=== PATIENT | female | born 1995 | race Two or more races ===

== ENCOUNTER 2019-03-21 15:51 | Emergency (ER) | payer OTHER ==
[~2019-03-21] VITALS: Ht 157.5 cm; Wt 102.1 kg
== END 2019-03-21 21:44 | disposition home or self-care (01) ==
LOC: ER 15:51
DX: R11.11 Vomiting without nausea (principal); R10.84 Generalized abdominal pain; K29.60 Other gastritis without bleeding

== ENCOUNTER 2019-09-26 06:48 | Inpatient (IN) | payer OTHER ==
[~2019-09-26] VITALS: Ht 157.5 cm; Wt 99.3 kg
--- NOTE | 2019-09-26 07:24 | NUR ---
SE RFECIBE PTE. FEMENINA ALERTA CONCIENTE Y ORIENTADA EN COMPANIA DE MADRE, PTE. REFIERE DOLOR ABOMINAL Y VOMITOS DESDE CASSY EN LA MANANA. SE PASA A AREA DE OBSERVACION.
--- NOTE | 2019-09-26 07:52 | NUR ---
PTE EVALUADA POR EL DR STEVEN [place]. MS L RENO ORIENTA SOBRE EL MISMO, LO CUAL REFIERE ENTENDER Y REALIZA PRUEBAS DE LABORATORIO AMADOU ORDEN MEDICA Y SIGUIENDO MEDIDAS ASEPTICAS. MEDICAMENTOS ADMINISTRADOS POR MS AZUL. SONOGRAMA NOTIFICADO A PERSONAL DE TURNO.
--- NOTE | 2019-09-26 15:01 | NUR ---
PTE ALERTA Y ORIENTADA X 3 ESFERAS QUIEN SE RECIBE EN ERNST CON BARANDAS ELEVADAS,SIN FAMILIAR AL MOMENTO,AREA DE VENOPUNCION PATENTE Y SHARON DE EDEMA CON FLUIDOS DE MANTENIMIENTO,NO REFIERE DOLOR AL MOMENTO.PENDIENTE A EVALUACION DE DR FELICIA CARRERA.
[2019-10-03] MEDS ORDERED: AMOX1TAB5 PO (12:11)
[2019-10-03] MEDS ORDERED: ULTRACET PO (12:12)
[2019-10-03] MEDS ORDERED: PROTONIX40 MG PO (12:13)
== END 2019-10-03 14:42 | disposition home or self-care (01) | DRG 418 ==
LOC: ER 06:48 → MEDJ 17:55
PROVIDERS: Surgery; ADMIT Internal Medicine
PROC: BF37ZZZ Magnetic Resonance Imaging (MRI) of Pancreas (ICD-10-PCS; 2019-09-26)
PROC: BW40ZZZ Ultrasonography of Abdomen (ICD-10-PCS; 2019-09-26)
PROC: 0FJB8ZZ Inspection of Hepatobiliary Duct, Via Natural or Artificial Opening Endoscopic (ICD-10-PCS; 2019-09-30)
PROC: 0FT44ZZ Resection of Gallbladder, Percutaneous Endoscopic Approach (ICD-10-PCS; principal; 2019-10-01 09:00)
DX: K85.10 Biliary acute pancreatitis without necrosis or infection (principal); K80.00 Calculus of gallbladder with acute cholecystitis without obstruction; E86.0 Dehydration; E87.8 Other disorders of electrolyte and fluid balance, not elsewhere classified; E66.01 Morbid (severe) obesity due to excess calories

== ENCOUNTER 2020-01-24 10:43 | Emergency (ER) | payer OTHER ==
[~2020-01-24] VITALS: Ht 157.5 cm; Wt 102.1 kg
[~2020-01-24 10:43] MED LIST: AMOX1TAB5 PO; PROTONIX40 MG PO; ULTRACET PO
[2020-01-24] MEDS ORDERED: AMOX1TAB5 PO (11:04)
[2020-01-24] MEDS ORDERED: CORTISPORIN OIN15 GM TP (11:05)
[2020-01-24] MEDS ORDERED: MOTRIN IB200 MG PO (11:05)
== END 2020-01-24 12:45 | disposition home or self-care (01) ==
LOC: ER 10:43
DX: H66.92 Otitis media, unspecified, left ear (principal)

== ENCOUNTER 2021-05-02 17:41 | Emergency (ER) | payer OTHER ==
[~2021-05-02] VITALS: Ht 157.5 cm; Wt 92.5 kg
[~2021-05-02 17:41] MED LIST changes: +CORTISPORIN OIN15 GM TP; +MOTRIN IB200 MG PO
== END 2021-05-02 21:38 | disposition home or self-care (01) ==
LOC: ER 17:41
DX: N89.8 Other specified noninflammatory disorders of vagina (principal); J45.998 Other asthma

== ENCOUNTER 2021-09-09 11:38 | Emergency (ER) | payer OTHER ==
[~2021-09-09] VITALS: Ht 157.5 cm; Wt 89.8 kg
== END 2021-09-09 14:22 | disposition home or self-care (01) ==
LOC: ER 11:38
DX: K29.70 Gastritis, unspecified, without bleeding (principal); Z90.49 Acquired absence of other specified parts of digestive tract

== ENCOUNTER 2022-12-21 18:43 | Emergency (ER) | payer OTHER ==
[~2022-12-21] VITALS: Ht 172.7 cm; Wt 89.8 kg
[2022-12-21] MEDS ORDERED: DOLOGEN CAPLET1 EACH PO (21:52)
[2022-12-21] MEDS ORDERED: OSEL75CA PO (21:52)
[2022-12-21] MEDS ORDERED: TUSNEL LIQUID178 ML PO (21:52)
== END 2022-12-21 22:30 | disposition home or self-care (01) ==
LOC: ER 18:43
DX: J10.1 Influenza due to other identified influenza virus with other respiratory manifestations (principal); R53.81 Other malaise; Z20.822 Contact with and (suspected) exposure to COVID-19

== ENCOUNTER 2024-10-20 00:39 | Emergency (ER) | payer OTHER ==
[~2024-10-20] VITALS: Ht 157.5 cm; Wt 104.3 kg
[~2024-10-20 00:39] MED LIST changes: +DOLOGEN CAPLET1 EACH PO; +OSEL75CA PO; +TUSNEL LIQUID178 ML PO
[2024-10-20 00:56] VITALS: BP 108/62; O2SAT 98
[2024-10-20] MEDS ORDERED: LIDOCAINE HCL 1% 10ML VIAL ONE ×2 (01:53→03:06)
[2024-10-20] MEDS ORDERED: POVIDONE-IODINE 118 ML BOTT TOP ONE (01:54)
[2024-10-20] MEDS ORDERED: TETANUS & DIPHTHERIA TOX,ADULT 0.5 ML VIAL IM STA (02:10)
[2024-10-20] MEDS ORDERED: CEFTRIAXONE SODIUM 1,000 MG VIAL IM STA (03:03)
[2024-10-20] MEDS ORDERED: CEFTRIAXONE SODIUM 1,000 MG VIAL ONE (03:04)
[2024-10-20] MEDS ORDERED: DIPHTH,PERTUSS(ACELL),TET VAC 0.5 ML SYRINGE IM ONE (03:05)
[2024-10-20] MEDS ORDERED: CEPHALEXIN500 MG PO (03:17)
[2024-10-20] MEDS ORDERED: KETO10TA2 PO (03:17)
== END 2024-10-20 03:24 ==
LOC: ER 00:40
DX: S81.812A Laceration without foreign body, left lower leg, initial encounter (principal); W45.8XXA Other foreign body or object entering through skin, initial encounter; W22.8XXA Striking against or struck by other objects, initial encounter; Y93.89 Activity, other specified; Y92.488 Other paved roadways as the place of occurrence of the external cause; Y99.9 Unspecified external cause status

== ENCOUNTER → 2024-10-30 | Emergency (ER) | payer OTHER ==
[~2024-10-30] VITALS: Ht 157.5 cm; Wt 100.7 kg
[~2024-10-30] MED LIST changes: +BACITRACIN 28.35 GM OINT.TUBE TOP ONE; +BACITRACIN-NEOMYCIN-POLYMYXIN 0.9 GM PACKET TOP ONE; +BACITRACIN1 EACH TOP; +CEPHALEXIN500 MG PO; +KETO10TA2 PO; +LEVOFLOXACIN750 MG PO
== END | disposition home or self-care (01) ==
LOC: ER 09:14
DX: Z48.02 Encounter for removal of sutures (principal); T81.41XA Infection following a procedure, superficial incisional surgical site, initial encounter; L03.116 Cellulitis of left lower limb; L08.9 Local infection of the skin and subcutaneous tissue, unspecified; J45.909 Unspecified asthma, uncomplicated